=== PATIENT | female | born 2000 | race Two or more races ===

== ENCOUNTER 2021-08-29 21:41 | Emergency (ER) | payer OTHER ==
[~2021-08-29] VITALS: Ht 154.9 cm; Wt 58.1 kg
[2021-08-29] MEDS ORDERED: DICLOFENAC SODI75 MG PO (22:56)
== END 2021-08-29 23:01 | disposition home or self-care (01) ==
LOC: ER 21:41
DX: S13.4XXA Sprain of ligaments of cervical spine, initial encounter (principal); M62.838 Other muscle spasm; V49.88XA Car occupant (driver) (passenger) injured in other specified transport accidents, initial encounter; Y92.89 Other specified places as the place of occurrence of the external cause